=== PATIENT | female | born 1980 | race Caucasian/White ===

== ENCOUNTER → 2024-03-06 12:15 | Outpatient (REF) | payer BC, SELFPAY | LOC: WDC 12:15 | PROVIDERS: ATTENDING PHYSICIAN Nurse Practitioner Family; FAMILY PHYSICIAN Nurse Practitioner Adult Health | DX: Z12.31 Encounter for screening mammogram for malignant neoplasm of breast (principal) | CPT/HCPCS: 77063; 77067 ==